=== PATIENT | female | born 1940 | race Caucasian/White ===

== ENCOUNTER → 2016-03-11 | Outpatient (CLI) | payer MEDICARE, OTHER, BC ==
[~2016-03-11] MED LIST: LEVO.1 PO; OCUVTAB PO; REST0.05 EACH EYE; VENTAER INH
[2016-03-11 13:50] LABS: BLOOD, URINE NEG (NEG); GLUCOSE,URINE NEG (NEG); KETONE, URINE NEG (NEG); NITRITE,URINE NEG (NEG); PH, URINE 5.5 (5.0-8.5); SQUAMOUS EPITHELIAL CELL URINE 1 /hpf (0-5); URINE COLOR YELLOW (YELLW/STRAW)
== END ==
LOC: PLAB 09:47
PROVIDERS: ATTEND Specialist
DX: N39.0 Urinary tract infection, site not specified (principal); B96.1 Klebsiella pneumoniae [K. pneumoniae] as the cause of diseases classified elsewhere
CPT/HCPCS: 81001; 85048; 87077; 87086; 87186

== ENCOUNTER → 2016-03-18 | Outpatient (CLI) | payer MEDICARE, OTHER, BC ==
[2016-03-18 12:19] LABS: BLOOD, URINE NEG (NEG); GLUCOSE,URINE NEG (NEG); KETONE, URINE NEG (NEG); MUCUS URINE FEW /lpf (OCC); NITRITE,URINE NEG (NEG); SQUAMOUS EPITHELIAL CELL URINE <1 /hpf (0-5); URINE COLOR YELLOW (YELLW/STRAW)
== END ==
LOC: PLAB 10:36
PROVIDERS: ATTEND Specialist
DX: N39.0 Urinary tract infection, site not specified (principal)
CPT/HCPCS: 81001; 87086

== ENCOUNTER → 2016-04-08 | Outpatient (CLI) | payer MEDICARE, OTHER, BC ==
[2016-04-08 11:00] LABS: BLOOD, URINE NEG (NEG); GLUCOSE,URINE NEG (NEG); KETONE, URINE NEG (NEG); NITRITE,URINE NEG (NEG); PH, URINE 6.5 (5.0-8.5); SQUAMOUS EPITHELIAL CELL URINE 1 /hpf (0-5); URINE COLOR YELLOW (YELLW/STRAW)
== END ==
LOC: PLAB 08:08
PROVIDERS: ATTEND Specialist
DX: N39.0 Urinary tract infection, site not specified (principal)
CPT/HCPCS: 36415; 81001; 85048; 87086

== ENCOUNTER → 2016-04-23 | Outpatient (CLI) | payer MEDICARE, OTHER, BC ==
[2016-04-23 10:46] LABS: BACTERIA, URINE RARE /hpf; BLOOD, URINE NEG (NEG); GLUCOSE,URINE NEG (NEG); KETONE, URINE NEG (NEG); NITRITE,URINE NEG (NEG); PH, URINE 6.5 (5.0-8.5); SQUAMOUS EPITHELIAL CELL URINE <1 /hpf (0-5); URINE COLOR YELLOW (YELLW/STRAW)
[2016-04-23 10:58] LABS: BICARBONATE 28.7 MEQ/L (21.0-32.0); FREE T4 1.16 NG/DL (0.76-1.46); POTASSIUM 3.9 MEQ/L (3.5-5.1)
== END ==
LOC: PLAB 06:35
PROVIDERS: ATTEND Specialist
DX: N39.0 Urinary tract infection, site not specified (principal); R73.01 Impaired fasting glucose; E03.9 Hypothyroidism, unspecified
CPT/HCPCS: 36415; 80048; 81001; 84439; 84443; 85048; 87086

== ENCOUNTER → 2016-05-12 | Outpatient (CLI) | payer MEDICARE, OTHER, BC ==
[2016-05-12 09:30] LABS: HEMATOCRIT 37.6 % (35.0-46.0); MEAN CELL VOLUME 88.2 FL (80.0-100.0); MEAN CORPUSCULAR HEMOGLOBIN 30.4 PG (27.0-34.0); MEAN CORPUSCULAR HGB CONC 34.4 % (32.0-36.0); PLATELET COUNT 257 TH/MM3 (150-450); RED BLOOD COUNT 4.26 MIL/MM3 (4.00-5.30); RED CELL DISTRIBUTION WIDTH 14.9 % (11.6-17.2); REVIEW FLAG FINAL; WHITE BLOOD COUNT 4.1 TH/MM3 (4.0-11.0)
[2016-05-12 09:53] LABS: WESTERGREN SEDIMENTATION RATE 17 mm/hr (0-30)
[2016-05-12 09:57] LABS: ANION GAP 7 MEQ/L (5-15); BICARBONATE 28.8 MEQ/L (21.0-32.0); BLOOD UREA NITROGEN 13 MG/DL (7-18); CHLORIDE 105 MEQ/L (98-107); GLOMERULAR FILTRATION RATE 72 ML/MIN (>89); GLUCOSE,FASTING 97 MG/DL (74-99); POTASSIUM 3.8 MEQ/L (3.5-5.1); SODIUM (NA) 141 MEQ/L (136-145)
== END ==
LOC: PLAB 06:56
PROVIDERS: ATTEND Specialist
DX: A49.02 Methicillin resistant Staphylococcus aureus infection, unspecified site (principal); Z96.642 Presence of left artificial hip joint
CPT/HCPCS: 36415; 80048; 85027; 85652; 86140

== ENCOUNTER → 2016-08-27 | Outpatient (CLI) | payer MEDICARE, OTHER, BC ==
[2016-08-27 13:05] LABS: BASOPHIL % 0.6 % (0.0-2.0); EOSINOPHIL # 0.2 TH/MM3 (0-0.4); EOSINOPHIL % 2.5 % (0.0-4.0); HEMATOCRIT 38.4 % (35.0-46.0); HEMO FLAGS DIFF FINAL; LYMPH % 25.5 % (9.0-44.0); LYMPHOCYTE # 1.6 TH/MM3 (1.0-4.8); MEAN CELL VOLUME 89.2 FL (80.0-100.0); MEAN CORPUSCULAR HEMOGLOBIN 29.8 PG (27.0-34.0); MEAN CORPUSCULAR HGB CONC 33.4 % (32.0-36.0); MONO % 8.8 % (0.0-8.0); NEUT % 62.6 % (16.0-70.0); PLATELET COUNT 288 TH/MM3 (150-450); RED BLOOD COUNT 4.31 MIL/MM3 (4.00-5.30); RED CELL DISTRIBUTION WIDTH 14.1 % (11.6-17.2); WHITE BLOOD COUNT 6.4 TH/MM3 (4.0-11.0)
[2016-08-27 13:43] LABS: ANION GAP 7 MEQ/L (5-15); BICARBONATE 28.8 MEQ/L (21.0-32.0); BLOOD UREA NITROGEN 11 MG/DL (7-18); CHLORIDE 103 MEQ/L (98-107); MAGNESIUM 2.6 MG/DL (1.5-2.5); POTASSIUM 4.2 MEQ/L (3.5-5.1); SODIUM (NA) 139 MEQ/L (136-145)
[2016-08-27 13:53] LABS: ALKALINE PHOSPHATASE 91 U/L (45-117); ALT (GPT) 26 U/L (10-53); AST (GOT) 24 U/L (15-37); GLOMERULAR FILTRATION RATE 96 ML/MIN (>89); TOTAL BILIRUBIN ADULT 0.5 MG/DL (0.2-1.0)
[2016-08-27 13:57] LABS: CREATINE KINASE 93 U/L (26-192)
== END ==
LOC: PLAB 11:16
PROVIDERS: ATTEND Family Medicine
DX: R25.2 Cramp and spasm (principal); R60.0 Localized edema
CPT/HCPCS: 36415; 80053; 82550; 83735; 85025

== ENCOUNTER → 2016-11-27 | Outpatient (CLI) | payer MEDICARE, OTHER, BC ==
[2016-11-27 09:55] LABS: AUTOMATED NEUTROPHIL # 3.8 TH/MM3 (1.8-7.7); BASOPHIL # 0.1 TH/MM3 (0-0.2); BASOPHIL % 0.9 % (0.0-2.0); EOSINOPHIL # 0.2 TH/MM3 (0-0.4); EOSINOPHIL % 2.3 % (0.0-4.0); HEMATOCRIT 37.1 % (35.0-46.0); HEMO FLAGS DIFF FINAL; LYMPH % 33.3 % (9.0-44.0); LYMPHOCYTE # 2.4 TH/MM3 (1.0-4.8); MEAN CELL VOLUME 90.4 FL (80.0-100.0); MEAN CORPUSCULAR HEMOGLOBIN 29.8 PG (27.0-34.0); MONO % 11.4 % (0.0-8.0); NEUT % 52.1 % (16.0-70.0); PLATELET COUNT 268 TH/MM3 (150-450); RED CELL DISTRIBUTION WIDTH 14.5 % (11.6-17.2); WHITE BLOOD COUNT 7.3 TH/MM3 (4.0-11.0)
[2016-11-27 10:31] LABS: ALT (GPT) 23 U/L (10-53); ANION GAP 5 MEQ/L (5-15); BICARBONATE 27.8 MEQ/L (21.0-32.0); BLOOD UREA NITROGEN 13 MG/DL (7-18); CHLORIDE 107 MEQ/L (98-107); GLOMERULAR FILTRATION RATE 84 ML/MIN (>89); GLUCOSE,FASTING 88 MG/DL (74-99); MAGNESIUM 2.6 MG/DL (1.5-2.5); POTASSIUM 3.5 MEQ/L (3.5-5.1); SODIUM (NA) 140 MEQ/L (136-145)
[2016-11-27 11:14] LABS: ALKALINE PHOSPHATASE 89 U/L (45-117); AST (GOT) 15 U/L (15-37); TOTAL BILIRUBIN ADULT 0.6 MG/DL (0.2-1.0)
[2016-11-27 11:15] LABS: CREATINE KINASE 84 U/L (26-192)
== END ==
LOC: PLAB 07:05
PROVIDERS: ATTEND Family Medicine
DX: R25.2 Cramp and spasm (principal); R60.0 Localized edema
CPT/HCPCS: 36415; 80053; 82550; 83735; 85025

== ENCOUNTER → 2016-12-04 | Outpatient (CLI) | payer MEDICARE, OTHER, BC ==
[2016-12-04 10:15] LABS: FREE T4 1.19 NG/DL (0.76-1.46); HDL CHOLESTEROL 61.5 MG/DL (40.0-60.0)
== END ==
LOC: PLAB 07:01
PROVIDERS: ATTEND Family Medicine
DX: E03.9 Hypothyroidism, unspecified (principal); E55.9 Vitamin D deficiency, unspecified; E78.5 Hyperlipidemia, unspecified
CPT/HCPCS: 36415; 80061; 82306; 84439; 84443

== ENCOUNTER → 2017-04-08 | Day surgery (SDC) | payer MEDICARE, BC ==
[~2017-04-08] VITALS: Ht 165.1 cm; Wt 75.0 kg
[~2017-04-08] MED LIST changes: +APREPITANT 40 MG CAP ONE; +BUPIVACAINE HCL PF 0.5% 30 ML VIAL ONE; +CIPROFLOXACIN 400 MG PREMIX 200 ML IV SCH; +HYDR-3288 PO; +LACTATED RINGER'S 1000 ML IV PRN; +LIDOCAINE HCL 2% 50 ML VIAL ONE; +MIDAZOLAM HCL 2 MG/2 ML VIAL ONE; +NEOMYCIN/POLYMYXIN 1 ML G.U. IRRIGANT ONE
[2017-04-08 08:52] VITALS: PULSE 71
[2017-04-08 09:15] VITALS: PULSE 57; TEMP 97.5
--- NOTE | 2017-04-08 09:46 | EKG ---
Date Performed: 04/08/2017 Time Performed: 06:53:46 PTAGE: 76 years EKG: SINUS BRADYCARDIA BORDERLINE ECG Since the prior tracing, there has been no significant zhane nge PREVIOUS TRACING : 10/19/2013 13.05 DOCTOR: Kirt Trinh Interpretating Date/Time 04/08/2017 09:44:21
[2017-04-08 09:55] VITALS: BP 106/56; PULSE 59; RESP 14; O2SAT 97
--- NOTE | 2017-04-08 22:02 | MP ---
cc: SONNY DAMON III, M.D. DATE OF SURGERY: 04/08/2017 PREOPERATIVE DIAGNOSIS: Left third and fourth trigger finger. PROCEDURE 1. Left third A1 marcy release. 2. Left fourth A1 marcy release. SURGEON Sonny Damon III, MD. PROCEDURE The patient was brought to the operating room and placed supine on the operating room table. After the correct site and side of surgery was verified by members of each team in the room multiple times, including patient and myself, and after adequate preoperative markings, preoperative written consent were verified by everyone, and after adequate preoperative time out was performed to everyone's satisfaction, and after IV sedation had been achieved, the left upper extremity was prepped and draped in traditional sterile surgical fashion. A 50/50 mixture of 2% plain lidocaine and 0.5% plain Marcaine was infiltrated in the skin and subcutaneous tissue in the palm. The limb was exsanguinated with a gentle Arnoldo wrap. A highly placed well padded axillary tourniquet was inflated to 200 mmHg for a total of 13 minutes. Two separate transverse oriented incisions in the distal palmar flexion crease was made over the third and fourth rays. Blunt dissection was performed. Bipolar electrocautery was used sparingly. The A1 pulleys were identified and divided in the midline in their entirety. Proximal and distal exploration did not reveal any further bands of tissue. Identical procedure was performed for the left fourth A1 marcy. Irrigation was performed with saline for one liter's worth of irrigation. The skin edges were reapproximated using running and interrupted 4-0 nylon sutures. The hand and arm were thoroughly cleansed and dried. Betadine Adaptic dressings applied atop of the wound followed by a bulky dressing. The axillary tourniquet was released. The hand and all fingers on the left became immediately soft, pink and warm and brisk capillary refill of less than two seconds. The patient was awakened from anesthesia and transferred to Post Anesthesia Care Unit, awake and in stable condition at the end of the case. MD RYAN Goddard III/JUAN A /9:01 AM /9:50 PM
== END | disposition home or self-care (01) ==
LOC: PHSDC 06:09
PROVIDERS: ATTEND Orthopaedic Surgery Hand Surgery
DX: M65.332 Trigger finger, left middle finger (principal); M65.342 Trigger finger, left ring finger; R94.31 Abnormal electrocardiogram [ECG] [EKG]
CPT/HCPCS: 01810; 26055; 93005; J0744; J2250; J7120; J8501

== ENCOUNTER → 2017-05-19 | Outpatient (CLI) | payer MEDICARE, BC ==
[~2017-05-19] MED LIST changes: -APREPITANT 40 MG CAP ONE; -BUPIVACAINE HCL PF 0.5% 30 ML VIAL ONE; -CIPROFLOXACIN 400 MG PREMIX 200 ML IV SCH; -LACTATED RINGER'S 1000 ML IV PRN; -LIDOCAINE HCL 2% 50 ML VIAL ONE; -MIDAZOLAM HCL 2 MG/2 ML VIAL ONE; -NEOMYCIN/POLYMYXIN 1 ML G.U. IRRIGANT ONE
[2017-05-19 10:39] LABS: HEMOGLOBIN 12.9 GM/DL (11.6-15.3); MEAN CELL VOLUME 88.3 FL (80.0-100.0); MEAN CORPUSCULAR HEMOGLOBIN 30.8 PG (27.0-34.0); MEAN CORPUSCULAR HGB CONC 34.8 % (32.0-36.0); MEAN PLATELET VOLUME 8.7 FL (7.0-11.0); PLATELET COUNT 231 TH/MM3 (150-450); RED BLOOD COUNT 4.19 MIL/MM3 (4.00-5.30); WHITE BLOOD COUNT 3.3 TH/MM3 (4.0-11.0)
[2017-05-19 10:43] LABS: BILIRUBIN, URINE NEG (NEG); BLOOD, URINE NEG (NEG); GLUCOSE,URINE NEG (NEG); KETONE, URINE NEG (NEG); NITRITE,URINE NEG (NEG); SQUAMOUS EPITHELIAL CELL URINE 1 /hpf (0-5); URINE COLOR YELLOW (YELLW/STRAW); URINE LEUKOCYTE ESTERASE TRACE (NEG)
[2017-05-19 10:44] LABS: ALBUMIN 3.6 GM/DL (3.4-5.0); AST (GOT) 20 U/L (15-37); BICARBONATE 27.8 MEQ/L (21.0-32.0); BLOOD UREA NITROGEN 7 MG/DL (7-18); CALCIUM 8.8 MG/DL (8.5-10.1); CHLORIDE 108 MEQ/L (98-107); CHOLESTEROL 174 MG/DL (120-200); CREATININE 0.61 MG/DL (0.50-1.00); GLOMERULAR FILTRATION RATE 96 ML/MIN (>89); GLUCOSE,FASTING 96 MG/DL (74-99); SODIUM (NA) 140 MEQ/L (136-145); TRIGLYCERIDES 80 MG/DL (42-150)
[2017-05-19 10:54] LABS: ALKALINE PHOSPHATASE 94 U/L (45-117); ALT (GPT) 25 U/L (10-53); CHOLESTEROL/ HDL RATIO 3.66 RATIO; FREE T3 2.81 PG/ML (2.18-3.98); FREE T4 1.28 NG/DL (0.76-1.46); HDL CHOLESTEROL 47.5 MG/DL (40.0-60.0); LDL CHOLESTEROL 111 MG/DL (0-99); TOTAL BILIRUBIN ADULT 0.6 MG/DL (0.2-1.0)
== END ==
LOC: PLAB 06:47
DX: E03.9 Hypothyroidism, unspecified (principal); I10 Essential (primary) hypertension
CPT/HCPCS: 36415; 80053; 80061; 81001; 84439; 84443; 84481; 85027

== ENCOUNTER 2017-08-16 19:45 | Emergency (ER) | payer MEDICARE, BC ==
[~2017-08-16] VITALS: Ht 165.1 cm; Wt 72.0 kg
[2017-08-16 19:55] VITALS: BP 156/69; PULSE 73; RESP 18; TEMP 98.6; O2SAT 99
[2017-08-16 20:04] VITALS: RESP 18; O2SAT 99
--- NOTE | 2017-08-16 20:04 | PD ---
HPI Chief Complaint: Chest Pain Time Seen by Provider: 19:58 Travel History International Travel<30 days: No Contact w/Intl Traveler<30days: No Traveled to known affect area: No History of Present Illness HPI This patient complains of chest pain. Duration 10 hours. Severity is moderate. She gets spells last about 15 minutes and resolved. They are not exertional. They are located in the left sternal border. She describes them as an aching. No productive cough or fever or injury. She denies history of coronary disease. She had a negative stress test a year or 2 ago. No alleviating factors. Symptoms exacerbated by pressing on her chest PFS Past Medical History Asthma: Yes Cancer: No Cardiovascular Problems: No Diabetes: No Endocrine: No Gastrointestinal Disorders: No Genitourinary: No Hepatitis: No Hiatal Hernia: No Hypertension: No Immune Disorder: No Medical other: No Musculoskeletal: No Neurologic: Yes (STROKE RIGHT EYE) Psychiatric: No Reproductive: No Respiratory: No Thyroid Disease: Yes (THYROIDECTOMY) Tetanus Vaccination: < 5 Years Influenza Vaccination: Yes Menopausal: Yes Past Surgical History Abdominal Surgery: No AICD: No Appendectomy: Yes Cardiac Surgery: No Cholecystectomy: Yes Ear Surgery: No Endocrine Surgery: Yes (THYROIDECTOMY) Eye Surgery: Yes (LASER SURGERY FOR STROKE IN EYE) Genitourinary Surgery: Yes (KIDNEY URETER ADJUSTMENT (PLASTIC SURGERY?)) Gynecologic Surgery: No Joint Replacement: Yes (LEFT HIP) Neurologic Surgery: No Oral Surgery: No Pacemaker: No Thoracic Surgery: No Tonsillectomy: Yes Other Surgery: Yes (THYROIDECTOMY) Social History Alcohol Use: Yes (OCCASIONAL) Tobacco Use: No Substance Use: No Allergies-Medications (Allergen,Severity, Reaction): Coded Allergies: amoxicillin (Verified Allergy, Severe, HIVES, 04/08/17) SEVERE NAUSEA clavulanic acid (Verified Allergy, Severe, HIVES, 04/08/17) SEVERE NAUSEA diatrizoate meglumine (Verified Allergy, Severe, Hives, 04/08/17) gadobenic acid (Verified Allergy, Severe, Hives, 04/08/17) gadodiamide (Verified Allergy, Severe, Hives, 04/08/17) gadoteridol (Verified Allergy, Severe, Hives, 04/08/17) iodixanol (Verified Allergy, Severe, Hives, 04/08/17) iohexol (Verified Allergy, Severe, Hives, 04/08/17) nickel (Verified Allergy, Severe, Hives, 04/08/17) shellfish derived (Verified Allergy, Severe, Hives, 04/08/17) NAUSEA Sulfa (Sulfonamide Antibiotics) (Verified Allergy, Unknown, HIVES, 04/08/17 ) sulfamethoxazole (Verified Allergy, Unknown, HIVES, 04/08/17) trimethoprim (Verified Allergy, Unknown, HIVES, 04/08/17) Reported Meds & Prescriptions Reported Meds & Active Scripts Active Reported Synthroid (Levothyroxine Sodium) 100 Mcg Tab 100 Mcg PO DAILY Ocuvite (Multiple Vitamins W/ Minerals) 1 Tab 1 Tab PO DAILY Review of Systems General / Constitutional: No: Fever Eyes: No: Visual changes HENT: No: Headaches Cardiovascular: Positive: Chest Pain or Discomfort Respiratory: No: Shortness of Breath Gastrointestinal: No: Abdominal Pain Genitourinary: No: Dysuria Musculoskeletal: No: Pain Skin: No Rash Neurologic: No: Weakness Psychiatric: No: Depression Endocrine: No: Polydipsia Hematologic/Lymphatic: No: Easy Bruising Physical Exam Narrative GENERAL: Well-nourished, well-developed patient in no apparent distress. SKIN: Focused skin assessment reveals no rash and nodules. Skin is Warm and dry. HEAD: Atraumatic. Normocephalic. EYES: Pupils equal and round. No scleral icterus. No injection or drainage. ENT: No nasal bleeding or discharge. Mucous membranes pink and moist. NECK: Trachea midline. No JVD. CARDIOVASCULAR: Regular rate and rhythm. No murmur appreciated. RESPIRATORY: No accessory muscle use. Clear to auscultation. Breath sounds equal bilaterally. GASTROINTESTINAL: Abdomen soft, non-tender, nondistended. Hepatic and splenic margins not palpable. MUSCULOSKELETAL: No obvious deformities. No clubbing. No cyanosis. No edema. She has readily reproducible chest wall tenderness when palpating the left sternal border. No crepitus or bruising. NEUROLOGICAL: Awake and alert. No obvious cranial nerve deficits. Motor grossly within normal limits. Normal speech. PSYCHIATRIC: Appropriate mood and affect; insight and judgment normal. Data Data Last Documented VS Vital Signs Date Time Temp Pulse Resp B/P (MAP) Pulse Ox O2 Delivery O2 Flow Rate FiO2 08/16/17 20:04 18 99 Room Air 6/10/18 19:58 73 08/16/17 19:55 98.6 156/69 (98) Orders Orders Electrocardiogram (08/16/17 20:01) Basic Metabolic Panel (Bmp) (08/16/17 20:01) Ckmb (Isoenzyme) Profile (08/16/17 20:01) Complete Blood Count With Diff (08/16/17 20:01) Troponin I (08/16/17 20:) Chest, Single Ap (08/16/17 20:) Ecg Monitoring (08/16/17 20:) Iv Access Insert/Monitor (08/16/17 20:) Oximetry (08/16/17 20:01) Sodium Chloride 0.9% Flush (Ns Flush) (08/16/17 20:15) CKMB (08/16/17 19:52) CKMB% (08/16/17 19:52) Labs Laboratory Tests Test 08/16/17 19:52 White Blood Count 6.5 TH/MM3 Red Blood Count 4.29 MIL/MM3 Hemoglobin 12.6 GM/DL Hematocrit 38.1 % Mean Corpuscular Volume 88.9 FL Mean Corpuscular Hemoglobin 29.3 PG Mean Corpuscular Hemoglobin Concent 32.9 % Red Cell Distribution Width 15.1 % Platelet Count 254 TH/MM3 Mean Platelet Volume 8.2 FL Neutrophils (%) (Auto) 41.2 % Lymphocytes (%) (Auto) 40.2 % Monocytes (%) (Auto) 13.2 % Eosinophils (%) (Auto) 4.9 % Basophils (%) (Auto) 0.5 % Neutrophils # (Auto) 2.7 TH/MM3 Lymphocytes # (Auto) 2.6 TH/MM3 Monocytes # (Auto) 0.9 TH/MM3 Eosinophils # (Auto) 0.3 TH/MM3 Basophils # (Auto) 0.0 TH/MM3 CBC Comment DIFF FINAL Differential Comment Blood Urea Nitrogen 8 MG/DL Creatinine 0.56 MG/DL Random Glucose 101 MG/DL Calcium Level 8.1 MG/DL Sodium Level 139 MEQ/L Potassium Level 3.8 MEQ/L Chloride Level 106 MEQ/L Carbon Dioxide Level 26.3 MEQ/L Anion Gap 7 MEQ/L Estimat Glomerular Filtration Rate 106 ML/MIN Total Creatine Kinase 154 U/L Troponin I LESS THAN 0.02 NG/ML MDM Medical Decision Making Medical Screen Exam Complete: Yes Emergency Medical Condition: Yes Medical Record Reviewed: Yes Differential Diagnosis Differential diagnosis includes RI, angina, pericarditis, pleurisy, GERD, anxiety. Narrative Course I have reviewed the patient's electronic medical record. I reviewed her EKG which shows sinus rhythm without ST elevation Extended cardiac monitoring reveals sinus rhythm without ectopy I reviewed her chest x-ray which is normal IV placed and labs sent General labs and cardiac enzymes are normal Most importantly, this patient has clear-cut and readily reproducible chest wall tenderness. Will not require inpatient stay for this chest pain. Diagnosis Primary Impression: Musculoskeletal chest pain Additional Instructions: The patient was advised to follow up with their physician and return if they worsen. Med/Other Pt SpecificInfo: Other Disposition: 01 DISCHARGE HOME Condition: Stable Atif Ron MD Aug 16, 2017 20:04
[2017-08-16 20:13] LABS: AUTOMATED NEUTROPHIL # 2.7 TH/MM3 (1.8-7.7); BASOPHIL % 0.5 % (0.0-2.0); EOSINOPHIL # 0.3 TH/MM3 (0-0.4); EOSINOPHIL % 4.9 % (0.0-4.0); HEMATOCRIT 38.1 % (35.0-46.0); HEMOGLOBIN 12.6 GM/DL (11.6-15.3); LYMPH % 40.2 % (9.0-44.0); LYMPHOCYTE # 2.6 TH/MM3 (1.0-4.8); MEAN CELL VOLUME 88.9 FL (80.0-100.0); MEAN CORPUSCULAR HEMOGLOBIN 29.3 PG (27.0-34.0); MEAN CORPUSCULAR HGB CONC 32.9 % (32.0-36.0); MEAN PLATELET VOLUME 8.2 FL (7.0-11.0); MONO % 13.2 % (0.0-8.0); MONOCYTE # 0.9 TH/MM3 (0-0.9); NEUT % 41.2 % (16.0-70.0); PLATELET COUNT 254 TH/MM3 (150-450); RED BLOOD COUNT 4.29 MIL/MM3 (4.00-5.30); RED CELL DISTRIBUTION WIDTH 15.1 % (11.6-17.2); WHITE BLOOD COUNT 6.5 TH/MM3 (4.0-11.0)
[2017-08-16] MEDS ORDERED: SODIUM CHLORIDE 0.9% FLUSH 10 ML FLUSH IVF PRN (20:15)
[2017-08-16 20:24] LABS: CHLORIDE 106 MEQ/L (98-107); SODIUM (NA) 139 MEQ/L (136-145)
[2017-08-16 20:27] LABS: CALCIUM 8.1 MG/DL (8.5-10.1)
[2017-08-16 20:28] LABS: BICARBONATE 26.3 MEQ/L (21.0-32.0); BLOOD UREA NITROGEN 8 MG/DL (7-18); GLUCOSE,RANDOM 101 MG/DL (74-106)
[2017-08-16 20:31] LABS: CREATININE 0.56 MG/DL (0.50-1.00); GLOMERULAR FILTRATION RATE 106 ML/MIN (>89)
--- NOTE | 2017-08-16 20:35 | RADRPT ---
EXAM DATE: 08/16/2017 8:17 PM EDT AGE/SEX: 76 years / Female INDICATIONS: Substernal chest pain. CLINICAL DATA: This is the patient's initial encounter. Patient reports that signs and symptoms have been present for 1 day and indicates a pain score of 4/10. MEDICAL/SURGICAL HISTORY: None. None. COMPARISON: No prior exams available for comparison. FINDINGS: A single AP view of the chest demonstrates the lungs to be symmetrically aerated without evidence of mass, infiltrate or effusion. The cardiomediastinal contours are unremarkable. Osseous structures a re intact. CONCLUSION: No active disease. Electronically signed by: Jose Morris MD 08/16/2017 8:34 PM EDT
[2017-08-16 20:36] LABS: TROPONIN I LESS THAN 0.02 NG/ML (0.02-0.05)
[2017-08-16 21:03] VITALS: BP 134/66; PULSE 56; RESP 16; O2SAT 99
--- NOTE | 2017-08-17 14:53 | EKG ---
Date Performed: 08/16/2017 Time Performed: 19:58:23 PTAGE: 76 years EKG: Sinus rhythm NORMAL ECG INTERPRETATION BASED ON A DEFAULT AGE OF 41 YEARS Since the PREVIOUS TRACING , no significant change noted PREVIOUS TRACIN04/08/2017 06.53 DOCTOR: Deandre Johnson Interpretating Date/Time 08/17/2017 14:50:34
== END 2017-08-16 21:06 | disposition home or self-care (01) ==
LOC: PHED 19:45
DX: R07.89 Other chest pain (principal); E07.9 Disorder of thyroid, unspecified; J45.909 Unspecified asthma, uncomplicated; Z86.73 Personal history of transient ischemic attack (TIA), and cerebral infarction without residual deficits; Z79.899 Other long term (current) drug therapy; Z88.0 Allergy status to penicillin; Z88.2 Allergy status to sulfonamides; Z88.8 Allergy status to other drugs, medicaments and biological substances
CPT/HCPCS: 71045; 80048; 82550; 82552; 84484; 85025; 93005